=== PATIENT | male | born 1980 | race Caucasian/White ===

== ENCOUNTER 2018-08-13 05:02 | Emergency (ER) | payer OTHER ==
[~2018-08-13] VITALS: Ht 170.2 cm; Wt 93.0 kg
[2018-08-13] MEDS ORDERED: PREDNISONE 20 M20 M1 PO ×2 (05:07→06:39)
[2018-08-13] MEDS ORDERED: NORCO 5-325 TA1 EACH PO ×2 (05:07→06:39)
[2018-08-13 05:14] VITALS: BP 136/105
== END 2018-08-13 05:14 | disposition home or self-care (01) ==
LOC: M.ERS 05:02
DX: M54.2 Cervicalgia (principal); R20.0 Anesthesia of skin